=== PATIENT | female | born 1975 | race Two or more races ===

== ENCOUNTER → 2024-02-24 | Outpatient (REF) | payer BC | LOC: M SFHCWAGY 17:33 | PROVIDERS: ATTEND Nurse Practitioner Family | DX: N73.9 Female pelvic inflammatory disease, unspecified (principal) ==

== ENCOUNTER → 2024-03-24 | Outpatient (REF) | payer BC | LOC: M PLALAB 10:47 | PROVIDERS: ATTEND Nurse Practitioner Family | DX: Z12.4 Encounter for screening for malignant neoplasm of cervix (principal) ==

== ENCOUNTER → 2024-03-24 | Outpatient (CLI) | payer BC | LOC: M WHC 09:06 | PROVIDERS: ATTEND Nurse Practitioner Family | DX: Z12.31 Encounter for screening mammogram for malignant neoplasm of breast (principal); R92.333 Mammographic heterogeneous density, bilateral breasts ==

== ENCOUNTER → 2025-04-06 | Outpatient (CLI) | payer BC | LOC: M WHC 08:41 | PROVIDERS: ATTEND Nurse Practitioner Family | DX: Z12.31 Encounter for screening mammogram for malignant neoplasm of breast (principal); R92.323 Mammographic fibroglandular density, bilateral breasts ==